=== PATIENT | female | born 1950 | race Caucasian/White ===

== ENCOUNTER 2025-02-22 00:34 | Emergency (ER) | payer BC, MEDICAID ==
[~2025-02-22] VITALS: Ht 167.6 cm; Wt 71.0 kg
[2025-02-22 00:53] VITALS: BP 120/61; PULSE 58; RESP 16; TEMP 36.6; O2SAT 99
[2025-02-22 02:41] VITALS: TEMP 97.8
[2025-02-22] MEDS: ACETAMINOPHEN 500MG TABLET PO ONE (02:41)
[2025-02-22] MEDS ORDERED: NAPR-1176 MT (03:25)
== END 2025-02-22 03:38 | disposition home or self-care (01) ==
LOC: ER 00:34
DX: S01.01XA Laceration without foreign body of scalp, initial encounter (principal); I10 Essential (primary) hypertension; Z79.1 Long term (current) use of non-steroidal anti-inflammatories (NSAID); Z79.899 Other long term (current) drug therapy; X58.XXXA Exposure to other specified factors, initial encounter; Y93.89 Activity, other specified; Y92.89 Other specified places as the place of occurrence of the external cause; Y99.8 Other external cause status
CPT/HCPCS: 12001; 99284